=== PATIENT | female | born 1980 | race Caucasian/White ===

== ENCOUNTER 2018-11-09 18:57 | Emergency (ER) | payer OTHER ==
[~2018-11-09] VITALS: Ht 162.6 cm; Wt 90.7 kg
[~2018-11-09 18:57] MED LIST: ACET-8386 PO; ALPR0.5T2 PO; FOLI1TAB19 PO; IBUP-974 PO; LID5T TP; OSCD500 PO; PRED20TA5 PO
[2018-11-09 19:05] VITALS: BP 109/80
--- NOTE | 2018-11-09 19:07 | NUR ---
TO LOBBY A/W BED AMBULATORY
--- NOTE | 2018-11-09 19:50 | NUR ---
PATIENT AMBULATED TO ER BED 1.
--- NOTE | 2018-11-09 20:00 | NUR ---
37 Y FEMALE BIB SELF C/O LOWER ABD PAIN RADIATING TO HER BACK WITH DIARRHEA SINCE YESTERDAY. NAUSEA FOR 2 DAYS, -VOMITING. BOWEL SOUNDS ACTIVE IN ALL 4 QUADRANTS, ABDOMEN ROUND AND SOFT. PAIN 10/10. VSS AT THIS TIME. PT [id number]. BED IS DOWN, LOCKED, BED RAIL X 1, ERMD TO SEE PT.
--- NOTE | 2018-11-09 20:01 | NUR ---
PMH- LUPUS, KIDNEY STONES RX- ALMODIPINE, VENLAFAXINE, COREG Addendum: 11/09/18 at 2016 by [email or web address] HTN
--- NOTE | 2018-11-09 20:21 | NUR ---
LIGHTS TURNED OFF, PT LAYING IN BED. GUARDING ABDOMEN.
[2018-11-09] MEDS ORDERED: CARV12.5 PO (20:23)
[2018-11-09] MEDS ORDERED: VENL150C1 PO (20:26)
[2018-11-09] MEDS ORDERED: AMLO10TA4 PO (20:28)
[2018-11-09] MEDS ORDERED: ONDANSETRON 4 MG/2 ML VIAL IVP ONE (20:45)
[2018-11-09] MEDS ORDERED: MORPHINE SULFATE 4 MG/ML SYR IVP ONE (20:45)
[2018-11-09] MEDS ORDERED: NACL 0.9% 1,000 ML IV ONE (20:45)
--- NOTE | 2018-11-09 20:56 | NUR ---
PT GOING TO CT
--- NOTE | 2018-11-09 21:22 | NUR ---
report given to rosmery britton
[2018-11-09 21:23] LABS: BASOPHILS % (AUTO) 0.5 % (0.0-2.0); EOSINOPHILS # (AUTO) 0.1 K/uL (0-0.4); EOSINOPHILS % (AUTO) 1.5 % (0.0-4.0); HEMATOCRIT 33.7 % (36-48); HEMOGLOBIN 10.9 g/dL (12.0-16.0); LYMPHOCYTES # (AUTO) 1.5 K/uL (2.5-16.5); LYMPHOCYTES % (AUTO) 23.7 % (20.5-51.1); MEAN CORPUSCULAR HEMOGLOBIN 25 pg (27-31); MEAN CORPUSCULAR HGB CONC 32 g/dL (33-37); MEAN CORPUSCULAR VOLUME 78.1 fL (80-94); MONOCYTES # (AUTO) 0.5 K/uL (0.8-1.0); MONOCYTES % (AUTO) 7.4 % (1.7-9.3); NEUTROPHILS # (AUTO) 4.3 K/uL (1.8-7.7); NEUTROPHILS % (AUTO) 66.9 % (42.2-75.2); PLATELET COUNT (AUTO) 327 K/uL (140-450); RED BLOOD CELL COUNT(AUTO) 4.32 MIL/uL (4.20-5.40); RED CELL DISTRIBUTION WIDTH 17.3 % (11.6-13.7); WHITE BLOOD COUNT (AUTO) 6.4 K/uL (4.8-10.8)
--- NOTE | 2018-11-09 21:40 | NUR ---
PT LAYING IN BED, REPORTS RELIEF IN PAIN, RR EVEN AND UNLABORED. ALL NEEDS MET.
[2018-11-09 21:41] LABS: ANION GAP 10.3 (8-16); CARBON DIOXIDE 28.1 mmol/L (21-32); CREATININE 0.9 mg/dL (0.6-1.3); POTASSIUM 3.4 mmol/L (3.5-5.1)
[2018-11-09 21:46] LABS: ALBUMIN 3.8 g/dL (3.4-5.0); TOTAL BILIRUBIN 0.2 mg/dL (0.0-1.0)
[2018-11-09] MEDS ORDERED: TAMSULOSIN 0.4 MG CAP PO ONE (21:50)
[2018-11-09] MEDS ORDERED: TAMSULOSIN 0.4 MG CAP ONE (22:16)
[2018-11-09 22:25] VITALS: BP 122/84
--- NOTE | 2018-11-09 22:25 | NUR ---
Patient discharged with v/s stable. Written and verbal after care instructions given and explained. Patient alert, oriented and verbalized understanding of instructions. Ambulatory with steady gait. All questions addressed prior to discharge. ID band removed. Patient advised to follow up with PMD. Rx of FLOMAX, NORCO given. Patient educated on indication of medication including possible reaction and side effects. Opportunity to ask questions provided and answered.
== END 2018-11-09 22:25 | disposition home or self-care (01) ==
LOC: MED 18:57
DX: N20.1 Calculus of ureter (principal); I10 Essential (primary) hypertension; M32.9 Systemic lupus erythematosus, unspecified; Z79.891 Long term (current) use of opiate analgesic; Z79.1 Long term (current) use of non-steroidal anti-inflammatories (NSAID); Z79.899 Other long term (current) drug therapy; Z88.2 Allergy status to sulfonamides; Z87.442 Personal history of urinary calculi
CPT/HCPCS: 36415; 74176; 80053; 81002; 81025; 83690; 85025; 96361; 96374; 96375; 99284; J2270; J2405; J7030

== ENCOUNTER 2018-11-11 10:44 | Emergency (ER) | payer OTHER ==
[~2018-11-11] VITALS: Ht 162.6 cm; Wt 90.7 kg
[~2018-11-11 10:44] MED LIST changes: +AMLO10TA4 PO; +CARV12.5 PO; +VENL150C1 PO
--- NOTE | 2018-11-11 10:49 | NUR ---
PT IN WHEELCHAIR TO ER BED 07
[2018-11-11 10:55] VITALS: BP 123/74
--- NOTE | 2018-11-11 11:06 | NUR ---
PT PRESENTED TO THE ED WITH THE CHIEF C/O FEVER AND CHILLS SINCE LAST NIGHT. PT TOOK TYLENOL LAST NIGHT. AFEBRILE AT THIS TIME. REPORTS N/V/D SINCE LAST NIGHT. NO BLOOD IN VOMIT AND DIARRHEA. NAUSEATED AT THIS TIME. BREATHING NORMALLY AT THIS TIME. SPO2 97%. REPORTS PAIN AT LEFT PELVIS 8/10 AT THIS TIME. POSITIONED FOR COMFORT. MEDICAL HX: HTN, LUPUS. ER MD AWARE.
--- NOTE | 2018-11-11 11:21 | NUR ---
PT BEING EVALUATED BY ER AT THIS TIME.
[2018-11-11] MEDS ORDERED: NACL 0.9% 1,000 ML IV ONE ×2 (11:30→12:45)
[2018-11-11] MEDS ORDERED: ONDANSETRON 4 MG/2 ML VIAL IVP ONE (11:30)
[2018-11-11] MEDS ORDERED: MORPHINE SULFATE 4 MG/ML SYR IVP ONE (11:30)
[2018-11-11 11:50] LABS: HEMATOCRIT 33.7 % (36-48); HEMOGLOBIN 10.9 g/dL (12.0-16.0); MEAN CORPUSCULAR HEMOGLOBIN 25 pg (27-31); MEAN CORPUSCULAR HGB CONC 32 g/dL (33-37); MEAN CORPUSCULAR VOLUME 77.3 fL (80-94); PLATELET COUNT (AUTO) 288 K/uL (140-450); RED BLOOD CELL COUNT(AUTO) 4.36 MIL/uL (4.20-5.40); RED CELL DISTRIBUTION WIDTH 17.2 % (11.6-13.7); WHITE BLOOD COUNT (AUTO) 10.2 K/uL (4.8-10.8)
[2018-11-11 11:58] LABS: APPEARANCE,URINE SL CLOUDY (CLEAR); BILIRUBIN,URINE NEGATIVE (NEGATIVE); BLOOD, URINE TRACE-I (NEGATIVE); COLOR,URINE YELLOW (YELLOW); LEUKOCYTE ESTERASE ,URINE 1+ (NEGATIVE); NITRITE, URINE POSITIVE (NEGATIVE); UGLUCOSE NEGATIVE (NEGATIVE)
[2018-11-11 12:00] LABS: ANION GAP 12.2 (8-16); CARBON DIOXIDE 25.5 mmol/L (21-32); POTASSIUM 3.7 mmol/L (3.5-5.1)
[2018-11-11 12:06] LABS: ALBUMIN 3.4 g/dL (3.4-5.0); TOTAL BILIRUBIN 0.4 mg/dL (0.0-1.0)
[2018-11-11 12:19] LABS: RBC,URINE 0-5 /HPF (0-5)
[2018-11-11 12:20] LABS: LYMPHOCYTES % (MANUAL) 4 % (20-46); MONOCYTES % (MANUAL) 2 % (5-12)
--- NOTE | 2018-11-11 12:32 | NUR ---
PT APPEARS TO BE RELAXED, RESTING IN BED. VERBALIZED FEELING BETTER. VSS. DENIES ANY NAUSEA OR VOMITING AT THIS TIME.
[2018-11-11] MEDS ORDERED: cefTRIAXone 1,000 MG VIAL ONE (13:05)
--- NOTE | 2018-11-11 13:37 | NUR ---
Patient appears to be resting in bed. Vital Signs within normal limits. Respirations even and unlabored.
[2018-11-11] MEDS ORDERED: diphenhydrAMINE 50 MG/ML VIAL IVP ONE (14:45)
[2018-11-11] MEDS ORDERED: METOCLOPRAMIDE 10 MG/2 ML INJ VIAL IVP ONE (14:45)
[2018-11-11] MEDS ORDERED: KETOROLAC 30 MG/ML VIAL IM ONE (14:45)
--- NOTE | 2018-11-11 16:05 | NUR ---
PT APPEARS TO BE RELAXED AND RESTING IN BED. VERBALIZES FEELING BETTER. DENIES N/V. DENIES PAIN.
--- NOTE | 2018-11-11 16:28 | NUR ---
Patient discharged with v/s stable. Written and verbal after care instructions given and explained. Patient alert, oriented and verbalized understanding of instructions. Ambulatory with steady gait. All questions addressed prior to discharge. ID band removed. Patient advised to follow up with PMD. Rx of PHENERGAN, CIPRO AND ZOFRAN given. Patient educated on indication of medication including possible reaction and side effects. Opportunity to ask questions provided and answered.
[2018-11-11 16:29] VITALS: BP 112/65
== END 2018-11-11 16:28 | disposition home or self-care (01) ==
LOC: MED 10:44
DX: N39.0 Urinary tract infection, site not specified (principal); I10 Essential (primary) hypertension; Z88.2 Allergy status to sulfonamides; Z79.899 Other long term (current) drug therapy
CPT/HCPCS: 36415; 80053; 81001; 81025; 85025; 87086; 87186; 96365; 96372; 96375; 99283; J0696; J1200; J1885; J2270; J2405; J2765; J7030; J7060

== ENCOUNTER 2019-04-08 13:20 | Emergency (ER) | payer OTHER ==
[~2019-04-08] VITALS: Ht 160 cm; Wt 93.0 kg
[2019-04-08 13:25] VITALS: BP 126/76
--- NOTE | 2019-04-08 13:33 | NUR ---
PT AMBULATED TO ER BED 02.
--- NOTE | 2019-04-08 13:40 | NUR ---
PATIENT PRESENTS TO ED WITH PT BIB SELF C/O LEFT CHEST PAIN X 1 MONTH. SHE DESCRIBES IT "SHARP AND STABBING" RADIATING TO L SHOULDER WITH 9/10 PAIN, AGGRAVATED BY BREATHING. PT WAS DIAGNOSED WITH PLEURISY, FOR WHICH SHE TOOK STEROIDS WHICH PROVIDED NO RELIEF. PT COMPLAINS OF NIGHT SWEATS, AND H/A. -NUMBNESS, -WEAKNESS. HR EVEN AND REGULAR. VSS; PATIENT POSITIONED FOR COMFORT; HOB ELEVATED; BEDRAILS UP X2; BED DOWN. ER MD MADE AWARE OF PT STATUS. PMH: LUPUS, HTN MEDS: BENLYSTA ONCE A WEEK SQ, AMLODIPINE ALLERGIES: SULFA- RASH
[2019-04-08] MEDS ORDERED: KETOROLAC 30 MG/ML VIAL IVP ONE (13:45)
[2019-04-08] MEDS ORDERED: MORPHINE SULFATE 4 MG/ML SYR IVP ONE (15:00)
[2019-04-08 15:11] LABS: POTASSIUM 3.2 mmol/L (3.5-5.1)
[2019-04-08 15:12] LABS: ALBUMIN 3.2 g/dL (3.4-5.0); ANION GAP 10.7 (8-16); CARBON DIOXIDE 28.5 mmol/L (21-32); CREATININE 0.8 mg/dL (0.6-1.3); TOTAL BILIRUBIN 0.3 mg/dL (0.0-1.0)
[2019-04-08] MEDS ORDERED: POTASSIUM CHLORIDE 10 MEQ TABER PO ONE (15:15)
[2019-04-08] MEDS ORDERED: NACL 0.9% 1,000 ML IV ONE (16:20)
[2019-04-08 16:21] LABS: BASOPHILS % (AUTO) 0.2 % (0.0-2.0); EOSINOPHILS # (AUTO) 0.1 K/uL (0-0.4); EOSINOPHILS % (AUTO) 0.6 % (0.0-4.0); HEMOGLOBIN 9.4 g/dL (12.0-16.0); LYMPHOCYTES # (AUTO) 1.7 K/uL (2.5-16.5); LYMPHOCYTES % (AUTO) 18.2 % (20.5-51.1); MEAN CORPUSCULAR HEMOGLOBIN 23 pg (27-31); MEAN CORPUSCULAR HGB CONC 31 g/dL (33-37); MEAN CORPUSCULAR VOLUME 74.4 fL (80-94); MONOCYTES # (AUTO) 0.3 K/uL (0.8-1.0); MONOCYTES % (AUTO) 3.5 % (1.7-9.3); NEUTROPHILS # (AUTO) 7.3 K/uL (1.8-7.7); NEUTROPHILS % (AUTO) 77.5 % (42.2-75.2); PLATELET COUNT (AUTO) 349 K/uL (140-450); RED BLOOD CELL COUNT(AUTO) 4.03 MIL/uL (4.20-5.40); RED CELL DISTRIBUTION WIDTH 18.8 % (11.6-13.7); WHITE BLOOD COUNT (AUTO) 9.4 K/uL (4.8-10.8)
[2019-04-08 18:09] VITALS: BP 118/64
--- NOTE | 2019-04-08 18:10 | NUR ---
Patient discharged with v/s stable. Written and verbal after care instructions given and explained. Patient verbalized understanding. Ambulatory with steady gait. All questions addressed prior to discharge. Advised to follow up with PMD.
== END 2019-04-08 18:10 | disposition home or self-care (01) ==
LOC: MED 13:20
DX: R07.89 Other chest pain (principal); E87.6 Hypokalemia; D64.9 Anemia, unspecified; M25.512 Pain in left shoulder; I10 Essential (primary) hypertension; Z88.2 Allergy status to sulfonamides; Z79.899 Other long term (current) drug therapy
CPT/HCPCS: 36415; 71046; 71275; 80053; 81025; 84484; 85025; 85379; 96374; 96375; 99284; J1885; J2270; J7030; Q9967; 93005